=== PATIENT | male | born 1955 | race Caucasian/White ===

== ENCOUNTER 2019-09-30 07:49 | Emergency (ER) | payer BC, SELFPAY ==
--- NOTE | ~2019-09-30 | XR_ITS ---
EXAMINATION: XR lumbar spine 2-3V DATE: 09/30/2019 08:51 INDICATION: Low back pain. Fall. TECHNIQUE: 3 views of lumbar spine were obtained. COMPARISON: Lumbar spine radiographs 05/13/2017 FINDINGS: There is 6 degrees levocurvature of lumbar spine. There are changes of anterior and posteri or fusion procedures at L4-L5 with interbody devices and pedicle screws. Vertebral body heights are n ormal. There is mildly decreased disc height at L3-L4. There are endplate osteophytes at most levels. There is multilevel mild to moderate facet joint osteoarthritis. IMPRESSION: 1. Mild lumbar spondylosis. 2. Anterior and posterior fusion procedures at L4-L5. Reviewed, dictated and finalized at location A. RATION CHECKER
[2019-09-30 08:05] VITALS: BP 127/72; PULSE 80; RESP 20; O2SAT 94
[2019-09-30] MEDS: KETOROLAC (*BKC) 60 MG/2 ML VIAL 30 MG IM (08:33)
--- NOTE | 2019-09-30 08:37 | PC.NURSE ---
pt to xray per wheelchair.
--- NOTE | 2019-09-30 08:38 | ED.GENADULT ---
HPI - General Adult General Chief complaint: Back Pain/Injury Stated complaint: injured back Source: patient Mode of arrival: ambulatory Limitations: no limitations History of Present Illness HPI narrative: Sheila a 63-year-old man with a past medical history of chronic low back pain with to previous surgeries, diabetes and hypertension that presents to the emergency department back pain. He slipped on the ice and fell down 3 stairs 1 hour ago. He had immediate pain in his low back that did radiate and feet. It has been constant since the fall. It is better with rest worse with twisting. He denies any loss of bowel or bladder control well as numbness, tingling and weakness. He had no other injuries and did not hit his head. MD complaint: Back Pain After Fall Onset (ago): hour(s) (1) Location: back Radiation: extremity Severity: moderate Relieving factors: rest Exacerbating factors: movement Related Data Home Medications Medication Instructions Recorded Confirmed ergocalciferol (vitamin D2) 1,250 mcg PO DAILY 09/30/19 09/30/19 [Vitamin D2] irbesartan 75 mg PO DAILY 09/30/19 09/30/19 lisinopril 2.5 mg PO DAILY 09/30/19 09/30/19 metformin 500 mg PO DAILY 09/30/19 09/30/19 pravastatin 40 mg PO DAILY 09/30/19 09/30/19 Allergies Allergy/AdvReac Type Severity Reaction Status Date / Time No Known Allergies Allergy Verified 09/30/19 08:17 Review of Systems Constitutional: Constitutional: Denies chills and Denies fever(s) Eyes: Eyes: Denies change in vision, Denies eye discharge and Denies loss of vision ENT: Denies Normal hearing present, Denies vertigo and Denies dizziness Cardiovascular: Cardiovascular: Denies chest pain with activity, Denies syncope, Denies edema and Denies dyspnea on exertion Respiratory: Respiratory: Denies cough and Denies dyspnea on exertion Gastrointestinal: Gastrointestinal: Denies abdominal pain, Denies diarrhea, Denies nausea and Denies vomiting Genitourinary: Genitourinary: Denies dysuria Musculoskeletal: Musculoskeletal: Denies deformity Neurologic: Denies Normal hearing present, Denies behavioral changes, Denies confusion, Denies vertigo, Denies dizziness, Denies syncope and Denies loss of vision Psychiatric: Psychiatric: Denies anxiety, Denies behavioral changes, Denies confusion and Denies depression Endocrine: Endocrine: Reports no additional endocrine complaints Hematologic/Lymphatic: Hematologic/Lymphatic: Reports no additional hematologic/lymphatic complaints Allergic/Immunologic: Allergic/Immunologic: Reports no additional allergic/immunologic complaints [facility] Past Medical History Medical History (Updated 09/30/19 @ 08:43 by Vinod Bacon DO) Chronic back pain Diabetes Hypertension Surgical History Surgical History (Updated 09/30/19 @ 08:44 by Vinod Bacon DO) Previous back surgery Family History Family History (Updated 09/30/19 @ 08:44 by Vinod Bacon DO) Father Acute myocardial infarction Social History Social History (Updated 09/30/19 @ 08:45 by Vinod Bacon DO) Smoking status: Never smoker Exam Const: General: cooperative, healthy appearing, comfortable, no acute distress, well developed, alert, awake and Physically active; No confusion Orientation/consciousness: oriented to person, oriented to place, oriented to time and No confusion HENMT: Head: normal to inspection, normocephalic and atraumatic Ears: hearing grossly normal bilaterally and external ears normal General nose exam: Normal external nose present Eyes: General: appearance normal, both eyes and all related structures Periorbital: periorbital findings normal Sclera: sclerae normal Pupils: Equal, round and reactive pupils present Resp: Effort & Inspection: normal respiratory effort, able to speak in complete sentences and no respiratory distress Cardio: Jugular venous distension: no JVD Rate: regular rate GI: Inspection: normal
--- NOTE | 2019-09-30 08:47 | PC.NURSE ---
pt return to room, at bedside.
== END 2019-09-30 09:20 | disposition home or self-care (01) ==
PROVIDERS: Emergency Provider Family Medicine; PCP Internal Medicine
DX: M62.830 Muscle spasm of back (principal)
CPT/HCPCS: 72100; 96372; 99282; 99283; J1885

== ENCOUNTER 2020-06-18 00:39 | Outpatient (CLI) | payer BC, SELFPAY ==
[2020-06-18 18:05] LABS: SARS-CoV-2 RNA PCR Negative
== END 2020-06-18 00:40 | disposition home or self-care (01) ==
LOC: ANHCOVIDDT 00:39
PROVIDERS: PCP Internal Medicine; Visit Provider Internal Medicine Gastroenterology
DX: Z01.812 Encounter for preprocedural laboratory examination (principal); Z20.828 Contact with and (suspected) exposure to other viral communicable diseases
CPT/HCPCS: 87635; C9803; U0003

== ENCOUNTER 2020-06-21 00:14 | Day surgery (SDC) | payer BC, SELFPAY ==
[2020-06-16 10:50] VITALS: BMI 35.2
[2020-06-21 11:30] VITALS: BP 145/77; PULSE 72; RESP 16; TEMP 36.6; O2SAT 94
[2020-06-21] MEDS: LACTATED RINGERS 1,000 ML 150 ML IV CONT (11:38)
--- NOTE | 2020-06-21 11:42 | PM.HPGS ---
History of Present Illness History of Present Illness Consent: Risks, benefits, and alternatives have been discussed and questions answered. Patient agrees to proceed with procedure. Chief complaint: neoplasm screening Narrative: Conrad Anna Jr. is a 64 year old male with colon polyp about 10 years ago. Review of Systems Constitutional: Constitutional: Denies headache(s) and Denies weakness Eyes: Eyes: Denies blurry vision ENT: Reports Normal hearing present, Denies headache(s) and Denies neck pain Cardiovascular: Cardiovascular: Denies chest pain and Denies dyspnea Respiratory: Respiratory: Denies dyspnea Gastrointestinal: Gastrointestinal: Reports no additional gastrointestinal complaints Genitourinary: Genitourinary: Denies dysuria Musculoskeletal: Musculoskeletal: Denies neck pain Integumentary/Breasts: Skin/Breast: Denies dry skin Neurologic: Reports Normal hearing present, Denies headache(s) and Denies weakness Psychiatric: Psychiatric: Denies anxiety Endocrine: Endocrine: Denies change in body appearance Hematologic/Lymphatic: Hematologic/Lymphatic: Denies easy bleeding Allergic/Immunologic: Allergic/Immunologic: Denies urticaria PMFSH Past Medical History Medical History (Updated 06/21/20 @ 11:42 by Raj Atwood MD) Adenomatous colon polyp Chronic back pain Colon cancer screening Diabetes Hypertension JHONATAN (obstructive sleep apnea) Surgical History Surgical History Previous back surgery Family History Family History Father Acute myocardial infarction Social History Social History Smoking packs per day: 2 Smoking cigarettes per day: 40.0 Years smoked: 20 Smoking pack-years: 40.00 Smoking status: Former smoker Tobacco type: cigarettes Alcohol intake: current Substance use: never Substance use type: does not use Spiritual care concerns: No Meds Home Medications and Allergies Home Medications Medication Instructions Recorded Confirmed Type ergocalciferol (vitamin D2) 1,250 mcg PO MONTHLY 09/30/19 06/16/20 History [Vitamin D2] metformin 500 mg PO BID 09/30/19 06/16/20 History pravastatin 40 mg PO DAILY 09/30/19 06/16/20 History aspirin [Adult Low Dose Aspirin] 81 mg PO DAILY 06/16/20 06/16/20 History duloxetine 20 mg PO BID 06/16/20 06/16/20 History irbesartan 75 mg PO DAILY 06/16/20 06/16/20 History meloxicam 15 mg PO DAILY PRN 06/16/20 06/16/20 History Allergies Allergy/AdvReac Type Severity Reaction Status Date / Time No Known Allergies Allergy Verified 06/21/20 11:29 Vital Signs Vital Signs - 24 hr 06/21/20 11:30 Temperature 97.9 F Pulse Rate 72 Respiratory Rate 16 Blood Pressure 145/77 H Pulse Oximetry 94 Exam Const: General: comfortable and no acute distress HENMT: General nose exam: Normal nares present Eyes: General: appearance normal, both eyes and all related structures Neck: Neck: no JVD Resp: Auscultation: clear to auscultation bilaterally Cardio: Rate: regular rate Rhythm: regular rhythm GI: Inspection: non-distended GI Palp: Yes Soft to palpation Skin: General skin exam: normal color Neuro: General: gait normal Speech: normal speech Extrem: General: normal to inspection Psych: Mental Status: mental status grossly normal Assessment and Plan Assessment and plan (1) Adenomatous colon polyp: Code(s): D12.6 - Benign neoplasm of colon, unspecified Status: Acute Assessment and Plan: will proceed with colonoscopy (2) Colon cancer screening: Code(s): Z12.11 - Encounter for screening for malignant neoplasm of colon Status: Acute
--- NOTE | 2020-06-21 11:43 | WPDANESEPPF ---
Anes - Initial Pre Proc Eval Procedure: Operation Date: 06/21/20 12:45 Proposed Procedures p Screening Colonoscopy - Pedro Pablo Paula MD Date/Time: 06/21/20 11:43 Surgeon: Pedro Pablo Paula MD Pre Op Diagnosis: neoplasm screening Patient Data Age: 64 Gender: M Height: 5 ft 8 in Weight: 104.4 kg Last Vital Signs Temp 97.9 F 06/21/20 11:30 Pulse 72 06/21/20 11:30 Resp 16 06/21/20 11:30 BP 145/77 H 06/21/20 11:30 Pulse Ox 94 06/21/20 11:30 Allergies Allergy/AdvReac Type Severity Reaction Status Date / Time No Known Allergies Allergy Verified 06/21/20 11:29 Home Medications Medication Instructions Recorded Confirmed Type ergocalciferol (vitamin D2) 1,250 mcg PO MONTHLY 09/30/19 06/16/20 History [Vitamin D2] metformin 500 mg PO BID 09/30/19 06/16/20 History pravastatin 40 mg PO DAILY 09/30/19 06/16/20 History aspirin [Adult Low Dose Aspirin] 81 mg PO DAILY 06/16/20 06/16/20 History duloxetine 20 mg PO BID 06/16/20 06/16/20 History irbesartan 75 mg PO DAILY 06/16/20 06/16/20 History meloxicam 15 mg PO DAILY PRN 06/16/20 06/16/20 History Patient hx anesthesia problems: none Family hx anesthesia problems: none PMFSH Past Medical History Medical History (Updated 06/21/20 @ 11:42 by Raj Atwood MD) Adenomatous colon polyp Chronic back pain Colon cancer screening Diabetes Hypertension JHONATAN (obstructive sleep apnea) Surgical History Surgical History Previous back surgery Family History Family History Father Acute myocardial infarction Social History Social History Smoking packs per day: 2 Smoking cigarettes per day: 40.0 Years smoked: 20 Smoking pack-years: 40.00 Smoking status: Former smoker Tobacco type: cigarettes Alcohol intake: current Substance use: never Substance use type: does not use Spiritual care concerns: No Anes - Eval Final PreProcedure Day of Procedure 06/21/20 11:43 Patient weight: obese Heart: regular rate and rhythm Lungs: clear to auscultation Airway: Mallampati scale class III Neurological: alert and oriented Last oral intake: >/= 8 hours ASA classification: IV Emergent: no Anesthetic plan: proceed Anesthesia type and monitoring: general GIVS and standard monitoring Informed Consent: The patient's anesthetic plan and its attendant risks and benefits were discussed with the patient/family/POA. Questions were solicited and answers provided to the satisfaction of the patient/family/POA.
[2020-06-21 11:46] LABS: Glucose Point of Care 121 (65-105)
[2020-06-21 12:05] VITALS: BP 120/70; PULSE 70; RESP 18; O2SAT 94
[2020-06-21 12:15] VITALS: BP 113/72; PULSE 73; RESP 21; O2SAT 97
[2020-06-21 12:25] VITALS: BP 140/76; PULSE 67; RESP 20; O2SAT 97
== END 2020-06-21 12:36 | disposition home or self-care (01) ==
PROVIDERS: PCP Internal Medicine; Visit Provider Internal Medicine Gastroenterology
PROC: 0DJD8ZZ Inspection of Lower Intestinal Tract, Via Natural or Artificial Opening Endoscopic (ICD-10-PCS; CPT 45378; principal; 2020-06-21 12:45)
DX: Z12.11 Encounter for screening for malignant neoplasm of colon (principal); K62.1 Rectal polyp; D17.5 Benign lipomatous neoplasm of intra-abdominal organs; I10 Essential (primary) hypertension; E11.9 Type 2 diabetes mellitus without complications; G47.33 Obstructive sleep apnea (adult) (pediatric); Z87.891 Personal history of nicotine dependence
CPT/HCPCS: 45380; 88305; J2704; J7120

== ENCOUNTER 2021-11-09 07:19 | Emergency (ER) | payer BC, SELFPAY ==
--- NOTE | ~2021-11-09 | CT_ITS ---
EXAMINATION: CT abdomen pelvis w con DATE: 11/09/2021 09:02 INDICATION: Right lower abdominal pain, nausea and vomiting TECHNIQUE: Computed tomography (CT) of the abdomen and pelvis was performed with 100 mL Omnipaque-350 intravenous contrast. Automated exposure control and iterative reconstruction technique were employe d. The dose-length product was 1146.06 mGy-cm. COMPARISON: Head CT dated 01/02/2017 FINDINGS: Chronic elevation left hemidiaphragm with mild left basilar atelectasis. Heart size is normal. No per icardial or pleural effusion. Moderate-sized sliding-type hiatal hernia. Small calcified gallstone in the dependent aspect of the otherwise normal-appearing gallbladder. Couple small low-attenuation hep atic cysts the largest measuring 9 mm . Spleen, pancreas and left adrenal gland are normal. 7 mm macr oscopic fat attenuation right adrenal nodule consistent with a myelolipoma. 2 mm nonobstructing left renal stone and 1.6 m exophytic left renal cyst. There are at least 5 stones in the right kidney, the largest measuring 3 mm. 3 mm obstructing stone in the distalmost right ureter within 1 cm of the ure terovesicular junction with mild right hydroureteronephrosis, mildly delayed right nephrogram and mil d right perinephric and periureteral stranding. 2-3 mm stone at the left ureterovesicular junction bu t without left hydroureteronephrosis. Bowels including the appendix are normal. Partially decompresse d bladder is unremarkable. No free intraperitoneal gas or fluid. No pathologically enlarged abdominal or pelvic lymphadenopathy. Partial L4 laminectomy with instrumented instrumented anterior and tiedown operator ior L4-5 spinal fusion. Likely bone graft harvest site at the left posterior iliac spine. IMPRESSION: 1. Bilateral nephrolithiasis with obstructing 3 mm stone at the distalmost right ureter with mild rig ht hydroureteronephrosis and mildly delayed right nephrogram and with 2-3 mm stone at the left ureter ovesicular junction but without left-sided hydroureteronephrosis. 2. Small sliding-type hiatal hernia. 3. Cholelithiasis. Reviewed, dictated and finalized at location A. IMPRESSION: 1. Bilateral nephrolithiasis with obstructing 3 mm stone at the distalmost righ t ureter with mild right hydroureteronephrosis and mildly delayed right nephrog hedy and with 2-3 mm stone at the left ureterovesicular junction but without lef t-sided hydroureteronephrosis. 2. Small sliding-type hiatal hernia. 3. Cholelithiasis.
[2021-11-09 07:25] VITALS: BP 190/91; PULSE 62; RESP 18; TEMP 36.4; O2SAT 97
--- NOTE | 2021-11-09 07:45 | ECG_ITS ---
Measurements Intervals [place] Rate: 62 P: 30 NM: 137 QRS: 68 QRSD: 94 T: 264 QT: 395 QTc: 401 Interpretive Statements SINUS RHYTHM WITH OCCASIONAL VENTRICULAR PREMATURE COMPLEXES LEFT VENTRICULAR HYPERTROPHY AND ST-T CHANGE [VOLTAGE CRITERIA PLUS ST/T ABNORMALITY] NO PREVIOUS ECG AVAILABLE FOR COMPARISON Electronically Signed On 11-09-2021 14:03:06 CDT by Michelle Coleman M.D.
--- NOTE | 2021-11-09 07:47 | ED.ABDPAIN ---
HPI - Abdominal Pain General Chief Complaint: Back Pain/Injury Stated Complaint: BACK PAIN Time Seen by Provider: 11/09/21 07:48 Source: patient and family Mode of arrival: ambulatory Limitations: no limitations History of Present Illness HPI narrative: this is a 66-year-old gentleman with a history of hypertension history of diabetes and hyperlipidemia has a chronic history of low back surgery and is complaining of low back pain as well as abdominal pain localizing to his right lower quadrant with some with nausea and an episode of vomiting with chills currently no fevers started yesterday and rates his pain about a 7/10 there is no chest pain no shortness of breath no dysuria no hematuria. MD elicited complaint: abdominal pain and other ( and lower back pain) Onset (ago): day(s) Pain Consistency: intermittent Location: periumbilical and RLQ Severity: moderate Pain scale (0-10): 7 Quality: aching Radiation: none Related Data Home Medications Medication Instructions Recorded Confirmed ergocalciferol (vitamin D2) 1,250 mcg PO MONTHLY 09/30/19 11/09/21 [Vitamin D2] metformin 500 mg PO BID 09/30/19 11/09/21 pravastatin 40 mg PO DAILY 09/30/19 11/09/21 aspirin [Adult Low Dose Aspirin] 81 mg PO DAILY 06/16/20 11/09/21 duloxetine 20 mg PO BID 06/16/20 11/09/21 irbesartan 75 mg PO DAILY 06/16/20 11/09/21 meloxicam 15 mg PO DAILY PRN 06/16/20 11/09/21 Allergies Allergy/AdvReac Type Severity Reaction Status Date / Time No Known Allergies Allergy Verified 11/09/21 07:34 Review of Systems Review of Systems: All systems reviewed & are unremarkable except as noted in HPI and below PMFSH Past Medical History Medical History Adenomatous colon polyp Chronic back pain Colon cancer screening Diabetes Hypertension JHONATAN (obstructive sleep apnea) Surgical History Surgical History Previous back surgery Family History Family History Father Acute myocardial infarction Social History Social History Smoking packs per day: 2 Smoking cigarettes per day: 40.0 Years smoked: 20 Smoking pack-years: 40.00 Smoking status: Former smoker Tobacco type: cigarettes Alcohol intake: current Substance use: never Substance use type: does not use Spiritual care concerns: No Exam Const: General: no acute distress and alert Orientation/consciousness: patient oriented x3 HENMT: Head: normal to inspection Eyes: Conjunctivae: conjunctivae normal Pupils: Equal, round and reactive pupils present EOM: EOMs intact bilaterally Direct Ophthalmoscopy: no photophobia Neck: Neck: normal visual inspection, no lymphadenopathy and no meningeal signs Chest: Chest palpation & inspection: normal inspection of the chest Resp: Effort & Inspection: normal respiratory effort Cardio: Rate: regular rate Rhythm: regular rhythm GI: GI Palp: Yes Soft to palpation and Yes Tenderness to palpation present (GI) ( Right lower quadrant) Percussion: Yes normal to percussion : Testes: Testes normal Urinary Catheter: Urinary Catheter: patent and draining Back/Spine/Pelvis: Back: CVA tenderness Skin: General skin exam: normal color Rashes: no rashes Neuro: General: patient oriented x3, moves all extremities and no meningeal signs Extrem: General: normal to inspection and no pedal edema Psych: Mental Status: mental status grossly normal Affect: normal affect and Anxious affect present Attitude: cooperative Course Course Emergency Course: patient having abdominal pain CT scan with contrast reviewed with patient and family as well as EKG and blood work, patient started an IV with some IV fluids pain medication which includes Toradol 30mg IV as well as Zofran 4mg IV. Vital Signs Vital signs: Faith
[2021-11-09 08:07] LABS: Basophils Absolute Auto 0.03 K/mm3 (0.00-0.10); Basophils Percent Auto 0.2 % (0.0-1.0); Eosinophils Absolute Auto 0.06 K/mm3 (0.02-0.50); Eosinophils Percent Auto 0.5 % (1.0-6.0); Hematocrit 46.9 % (40.0-54.0); Hemoglobin 14.8 g/dL (14.0-18.0); Immature Granulocyte Absolute 0.07 K/mm3 (0.00-0.00); Immature Granulocyte Percent A 0.5 % (0.0-0.0); Lymphocytes Absolute Auto 1.27 K/mm3 (1.10-4.50); Lymphocytes Percent Auto 9.6 % (18.0-42.0); Mean Corpuscular HGB Conc 31.6 g/dL (32.0-36.0); Mean Corpuscular Hemoglobin 26.8 pg (27.0-31.0); Mean Platelet Volume 9.2 fl (8.7-11.0); Monocytes Absolute Auto 0.64 K/mm3 (0.10-0.90); Monocytes Percent Auto 4.8 % (2.0-11.0); Neutrophils Absolute Auto 11.2 K/mm3 (1.7-7.2); Neutrophils Percent Auto 84.4 % (50.0-70.0); Platelet Count Result 230 K/mm3 (150-420); Red Blood Count 5.52 M/mm3 (4.70-6.10); Red Cell Distribution Width 13.5 % (11.6-14.4); White Blood Count 13.3 K/mm3 (4.8-10.8)
[2021-11-09 08:12] LABS: Add Urine Microscopic? YES; Appearance Urine Clear (Clear); Bilirubin Urine Negative (Negative); Blood Urine 3+ (Negative); Color Urine Light Yellow (Yellow); Glucose Urine UA Negative (Negative); Ketones Urine Negative (Negative); Leukocyte Esterase Ur Negative (Negative); Nitrate Urine Negative (Negative); Protein Urine 2+ (Negative); Specific Grav Ur 1.025 (1.010-1.020); Urobilinogen Urine 0.2 mg/dL (0.2-1.0)
[2021-11-09] MEDS: SODIUM CHLORIDE 0.9% IV 1,000 ML 999 ML IV CONT (08:12)
[2021-11-09] MEDS: KETOROLAC 30 MG/ML VIAL (*BKC) IV PUSH (08:13)
[2021-11-09] MEDS: ONDANSETRON INJ 4 MG/2 ML VIAL IV PUSH (08:17)
[2021-11-09 08:21] LABS: Partial Thromboplastin Time 29.3 SEC (23.90-30.70); Prothrombin Time 10.9 Seconds (9.50-12.10)
[2021-11-09 08:22] LABS: Bacteria Urine Trace /hpf; Mucus Urine Few /lpf; RBC Urine 21-50 /hpf (0-2); WBC Urine 0-3 /hpf (0-3)
[2021-11-09 08:26] LABS: Lactic Acid Reflex 1.5 mmol/L (0.4-2.0)
[2021-11-09 08:32] LABS: Alanine Aminotransferase 27 U/L (16-63); Albumin Level 3.7 g/dL (3.4-5.0); Alkaline Phosphatase 83 U/L (46-116); Anion Gap 10 mmol/L (8-16); Aspartate Amino Transferase 17 U/L (15-37); Blood Urea Nitrogen 24 mg/dL (7-18); Calcium 9.4 mg/dL (8.5-10.1); Carbon Dioxide 29 mmol/L (21-32); Chloride 102 mmol/L (98-108); Estimated CRCL calculation 55 ml/min; Estimated Glomerular Filt Rate 53; Glucose 173 mg/dL (70-99); Lipase 81 U/L (73-393); Osmolality Calculated 300 mOsm/kg (285-295); Sodium 141 mmol/L (136-145); Total Protein 7.8 g/dL (6.4-8.2); Troponin I 10.5 ng/L (0.00-60.4)
[2021-11-09 09:06] VITALS: BP 178/88; PULSE 60; TEMP 36.6; O2SAT 97
== END 2021-11-09 09:40 | disposition home or self-care (01) ==
PROVIDERS: Emergency Provider Emergency Medicine; PCP Internal Medicine
DX: N20.1 Calculus of ureter (principal); E11.9 Type 2 diabetes mellitus without complications; I10 Essential (primary) hypertension; Z87.891 Personal history of nicotine dependence
CPT/HCPCS: 36415; 74177; 80053; 81001; 83605; 83690; 84484; 85025; 85610; 85730; 93005; 96361; 96374; 96375; 99284; J1885; J2405; J7030; Q9967

== ENCOUNTER 2022-12-14 14:13 | Outpatient (CLI) | payer MEDICARE, SELFPAY ==
--- NOTE | ~2022-12-14 | XR_ITS ---
Left Knee Technique: AP, lateral, and sunrise views were obtained. Clinical History: Pain Findings: No fracture or dislocation is seen. Osseous alignment is anatomic. Minimal tricompartmental spurring noted. Soft tissues are unremarkable. No joint effusion is seen. Impression: Minimal tricompartmental degenerative spurring. Reviewed, dictated and finalized at [facility]. Impression: Minimal tricompartmental degenerative spurring.
--- NOTE | ~2022-12-14 | XR_ITS ---
AP and lateral views of the left hip Clinical history: Pain Findings: No acute fracture or dislocation is seen. Osseous alignment is anatomic. The left hip joint and visualized left SI joint are preserved. Soft tissues are unremarkable. Impression: No significant abnormality is seen. Reviewed, dictated and finalized at [facility]. Impression: No significant abnormality is seen.
--- NOTE | ~2022-12-14 | XR_ITS ---
XR lumbar spine 2-3V DATE: 12/14/2022 14:46 INDICATION: Chronic low back pain. TECHNIQUE: AP, lateral and coned lateral lumbosacral views COMPARISON: 09/30/2019 lumbar spine FINDINGS: Status post posterior and interbody spinal fusion at L4-5. There is mild degenerative disc disease at L1-2 and L4-5. No fracture or bone destruction is detected. The sacroiliac joints are intact. No significant change since 09/30/2019. Right renal calcified calculi. IMPRESSION: No significant change since 09/30/2019 Reviewed, dictated and finalized at location B.
== END 2022-12-14 14:14 | disposition home or self-care (01) ==
LOC: CHSIMG 14:19
PROVIDERS: PCP Internal Medicine; Visit Provider Internal Medicine
DX: M25.562 Pain in left knee (principal); M54.50 Low back pain, unspecified; M17.12 Unilateral primary osteoarthritis, left knee
CPT/HCPCS: 72100; 73502; 73562

== ENCOUNTER 2023-07-29 14:36 | Outpatient (CLI) | payer MEDICARE, SELFPAY ==
--- NOTE | ~2023-07-29 | CT_ITS ---
EXAMINATION: CT abdomen pelvis wo/w con DATE: 07/29/2023 15:36 INDICATION: Microscopic hematuria. TECHNIQUE: Computed tomography (CT) of the abdomen and pelvis was performed without and with intraven ous contrast using a total of 130 mL Omnipaque-350 intravenous contrast with a double-bolus technique for simultaneous opacification of the renal parenchyma and renal collecting system. Automated exposu re control and iterative reconstruction technique were employed. The dose-length product was 2238.93 mGy-cm. COMPARISON: CT abdomen and pelvis 11/09/2021 FINDINGS: The visualized portions of the lung bases demonstrate mild atelectasis. No pleural effusion. The hear t size is normal. There are coronary artery calcifications. No pericardial effusion. There is a small sliding hiatal hernia. There are cysts in the liver measuring up to 11 mm. There is a gallstone in t he gallbladder, which is normal in size. The spleen, pancreas, and adrenal glands are normal. There i s a 16 mm cyst in right kidney. There is an 18 mm hemorrhagic cyst in left kidney. There are approxim ately 9 stones in right kidney with the largest node measuring 12 mm in the renal pelvis. There is ur othelial thickening in the renal pelvis. Right ureter is well opacified. There are 2 stones in left k idney measuring up to 3 mm. Left ureter is not well opacified distally, but is normal. There is a lef t inguinal hernia containing fat. There are no dilated loops of bowel. The appendix is normal. There is an umbilical hernia containing fat. There are no pathologically enlarged lymph nodes. There is no free intraperitoneal fluid. There are changes of anterior and posterior fusion procedures at L4-L5. T here is mild thoracic and lumbar spondylosis. IMPRESSION: 1. Bilateral nonobstructing kidney stones. Urothelial thickening in right renal pelvis, consistent wi th inflammation. Reviewed, dictated and finalized at location E. LY PRACTICE MEDICAL DOCTOR IMPRESSION: 1. Bilateral nonobstructing kidney stones. Urothelial thickening in right renal pelvis, consistent with inflammation.
[2023-07-29 15:21] LABS: Estimated Glomerular Filt Rate > 60
== END 2023-07-29 14:37 | disposition home or self-care (01) ==
PROVIDERS: PCP Internal Medicine; Visit Provider Physician Assistant
DX: R31.29 Other microscopic hematuria (principal); N20.0 Calculus of kidney
CPT/HCPCS: 74178; Q9967

== ENCOUNTER 2023-10-28 08:35 | Outpatient (CLI) | payer MEDICARE, SELFPAY ==
--- NOTE | 2023-10-28 08:50 | ECG_ITS ---
Measurements Intervals [place] Rate: 47 P: -3 ND: 141 QRS: 50 QRSD: 98 T: 151 QT: 425 QTc: 379 Interpretive Statements SINUS BRADYCARDIA LEFT VENTRICULAR HYPERTROPHY ST-T WAVE ABNORMALITY IN LAT/HIGH LAT LEADS- CONSIDER ISCHEMIA BASELINE ARTIFACT- I, II, III, AVR, AVL, AVF ABNORMAL ECG COMPARED TO ECG 11/09/2021 08:11:46 SIN[address]AD[address]CARDIA NOW PRESENT ST-T WAVE ABNORMALITY NOW PRESENT Electronically Signed On 10-28-2023 9:20:13 VISITOR INFORMATION ASSISTANT by Tod Tang D.O.
[2023-10-28 09:17] LABS: Anion Gap 8 mmol/L (8-16); Blood Urea Nitrogen 16 mg/dL (9-20); Calcium 9.4 mg/dL (8.4-10.2); Carbon Dioxide 26 mmol/L (22-30); Chloride 105 mmol/L (98-107); Estimated Glomerular Filt Rate > 60; Glucose 103 mg/dL (65-110); Potassium 3.9 mmol/L (3.4-5.0); Sodium 139 mmol/L (137-145)
[2023-10-28 09:22] LABS: Prothrombin Time 13.8 Seconds (11.1-14.7)
[2023-10-28 09:23] LABS: Partial Thromboplastin Time 30.7 SECONDS (22.3-36.8)
== END 2023-10-28 08:36 | disposition home or self-care (01) ==
LOC: ANHSURGERY 08:40
PROVIDERS: Anesthesiology; PCP Internal Medicine; Visit Provider Urology
DX: N20.0 Calculus of kidney (principal); E11.9 Type 2 diabetes mellitus without complications; Z01.818 Encounter for other preprocedural examination; R94.31 Abnormal electrocardiogram [ECG] [EKG]
CPT/HCPCS: 36415; 80048; 85610; 85730; 87086; 93005

== ENCOUNTER 2023-11-01 00:32 | Day surgery (SDC) | payer MEDICARE, SELFPAY ==
[2023-10-22 13:58] VITALS: BMI 29.8
--- NOTE | 2023-10-22 14:07 | PC.NURSE ---
PRE-OP INSTRUCTIONS, PLEASE READ CAREFULLY Report to the Outpatient Waiting Room, entrance under the green pavilion located off [facility], at time _1100_ on date _11/01/23_. Planned Procedure Time: _1 PM_. Time changes happen often and if your time is changed the preop area will call you the afternoon before. - You and your visitor will be asked to self-screen and do not enter if you have any COVID symptoms. - A mask is optional within the hospital at this time. Patients may have clear liquids (water, carbonated beverages, clear teas, apple juice) until 3 hours prior to surgery (1000 AM) with a maximum of 20 ounces. - No food from midnight until time of surgery Take the following medications with a SIP of water the morning of surgery: _DULOXETINE_ DO NOT STOP ANY OF YOUR OTHER PRESCRIPTION MEDICATIONS PRIOR TO SURGERY ?EXCEPT THE FOLLOWING Medications to discontinue per physician ___NONE____, Date to take last dose Please no make-up, nail nauruan, hairspray, perfume, deodorant, or body powder the day of surgery. No jewelry (including any body piercings) or valuables the day of surgery, leave them at home. Please take a shower or bath the night before, or the morning of, surgery with an antibacterial soap. Wear comfortable, loose fitting clothing. - Jewelry must be removed prior to entering the operating room. Rings and piercings that are not removed may be cut off. - The hospital will not accept responsibility for valuables. - Please leave all valuables, including medications, at home the day of surgery. If you are going home after surgery, a licensed stunt driver must drive you home. - NO public transportation without another adult if you receive anesthesia. - We recommend that an adult stay with you for 24 hours following discharge. - We also recommend that you do not drive, make important decision, drink alcoholic beverages, or take any drugs that were not prescribed by your health care provider for at least 24 hours after your discharge time. Follow any additional instructions given to you from your surgeon. If you or anyone in your household have experienced Covid symptoms in the past week, please notify your surgeon or the nurse liaison at the phone number below for possible testing. Telephone instructions given to _PATIENT_and asked if any additional questions and then verbalized understanding. Patient advised to call surgeon office or pre surgery nurse liaison [phone] if any additional questions.
--- NOTE | 2023-10-31 13:48 | P.PNAN_ITS ---
Anes - Initial Pre Proc Eval Procedure: Operation Date: 11/01/23 13:00 Proposed Procedures p Right Extracorporeal Shock Wave Lithotripsy - Michael Watts MD s Flexible Cystoscopy - Michael Watts MD Date/Time: 10/31/23 13:48 Surgeon: Michael Watts MD Pre Op Diagnosis: right renal kidney stones Patient Data Age: 68 Gender: M Height: 1.7 m Weight: 86.36 kg Allergies Allergy/AdvReac Type Severity Reaction Status Date / Time No Known Allergies Allergy Verified 11/01/23 11:20 Home Medications Medication Instructions Recorded Confirmed Type ergocalciferol (vitamin D2) 1,250 1,250 mcg PO MONTHLY 09/30/19 11/01/23 History mcg (50,000 unit) capsule (Vitamin D2) metformin 500 mg tablet,extended 500 mg PO BID 09/30/19 11/01/23 History release 24 hr duloxetine 20 mg capsule,delayed 20 mg PO BID 06/16/20 11/01/23 History release Patient hx anesthesia problems: none Family hx anesthesia problems: none Results Review: All pre-operative results and documents have been reviewed as part of the pre- operative evaluation. [facility] Past Medical History Medical History (Updated 10/31/23 @ 13:49 by Joselito Maurer DO) Adenomatous colon polyp Chronic back pain Colon cancer screening Diabetes GERD (gastroesophageal reflux disease) Hypertension JHONATAN (obstructive sleep apnea) Surgical History Surgical History (Updated 10/31/23 @ 13:49 by Joselito Maurer DO) History of cholecystectomy Previous back surgery Family History Family History Father Acute myocardial infarction Social History Social History Smoking packs per day: 2 Smoking cigarettes per day: 40.0 Years smoked: 15 Smoking pack-years: 30.00 Smoking status: Former smoker Tobacco type: cigarettes Second hand tobacco smoke exposure: No Smoking end date: 08/26/93 Alcohol intake: never Substance use: never Substance use type: does not use Living arrangements: with family Spiritual care concerns: No Anes - Eval Final PreProcedure Day of Procedure 10/31/23 13:48 Patient weight: overweight Heart: regular rate and rhythm Lungs: clear to auscultation Airway: Mallampati scale class II Neurological: alert and oriented Last oral intake: >/= 8 hours ASA classification: III Emergent: no Anesthetic plan: proceed Anesthesia type and monitoring: general LMA and standard monitoring Results Review: All pre-operative results and documents have been reviewed as part of the pre- operative evaluation. Informed Consent: The patient's anesthetic plan and its attendant risks and benefits were discussed with the patient/family/POA. Questions were solicited and answers provided to the satisfaction of the patient/family/POA.
[2023-11-01] VITALS (9 sets, daily range): BP systolic 134–168; BP diastolic 57–90; PULSE 49–58; RESP 15–21; TEMP 36.3–36.8; O2SAT 96–100
--- NOTE | ~2023-11-01 | XR_ITS ---
EXAMINATION: XR abdomen/kub 1V INDICATION: Urolithiasis TECHNIQUE: Supine views of the abdomen were obtained on 2 radiographs. COMPARISON: None FINDINGS: A 13 mm calcification projects in the right renal pelvis. At least six additional stones of the right kidney are identified which measure up to 4 mm. Left kidney stones measure up to 4 mm. The lung bases are clear. The bowel gas pattern is normal. There are phleboliths of the pelvis. There ar e surgical changes at L4-5. IMPRESSION: 1. 13 mm calcification in the right renal pelvis. 2. Bilateral nephrolithiasis. Reviewed, dictated and finalized at location B. TACKER
--- NOTE | 2023-11-01 06:25 | WPDHPUPDATE1 ---
History and Physical Update Update Date/Time: 11/01/23 06:25 History and Physical has been reviewed, including an updated exam of the patient. There are NO changes in the patient's condition. Risks, benefits, and alternatives have been discussed and questions answered. Patient agrees to proceed with procedure.
[2023-11-01] MEDS: LACTATED RINGERS 1,000 ML 30 ML IV CONT (11:30)
[2023-11-01 11:34] LABS: Glucose Point of Care 115 mg/dl (65-105)
[2023-11-01] MEDS: ceFAZolin 2 GM/D5W 50 ML 2 GM/50 ML BAG IVPB (11:46)
--- NOTE | 2023-11-01 12:16 | W.PM.PROC2 ---
Procedure Note - Detailed Date of Procedure 11/01/23 Pre-op Diagnosis Right renal stones, microscopic hematuria Post-op Diagnosis Same Procedure Performed Cystoscopy, right ESWL Surgeon Michael Watts MD Anesthesia General Description of Procedure The patient was brought to the operative suite where he was placed in the supine position on the Dornier lithotripter table. Flexible cystoscopy was undertaken with a 16F flexible cystoscopy. There were no urethral strictures. The prostatic urethra estimated length was 2.0cm. There was mild obstruction of the prostatic urethra with no median lobe enlargement. The bladder mucosa was normal and there was a single, orthotopic ureteral orifice bilaterally. The patient was then repositioned in the supine position with the focal point of the lithotriptor on a 12mm right renal pelvic calculus. A total of 2500 shocks were delivered at a power setting of 4. There appeared to be good fragmentation of the stone. The patient tolerated the procedure well and was taken to the recovery room in good condition. Drains No Pathology None sent Complications No immediate complications
[2023-11-01 12:53] LABS: Glucose Point of Care 116 mg/dl (65-105)
== END 2023-11-01 14:21 | disposition home or self-care (01) ==
PROVIDERS: PCP Internal Medicine; Visit Provider Urology
PROC: (CPT 50590; principal; 2023-11-01 13:00)
PROC: 0TJB8ZZ Inspection of Bladder, Via Natural or Artificial Opening Endoscopic (ICD-10-PCS; CPT 52000; 2023-11-01 13:00)
DX: N20.0 Calculus of kidney (principal); R31.29 Other microscopic hematuria; E11.9 Type 2 diabetes mellitus without complications; I10 Essential (primary) hypertension; G47.33 Obstructive sleep apnea (adult) (pediatric); K21.9 Gastro-esophageal reflux disease without esophagitis; Z79.84 Long term (current) use of oral hypoglycemic drugs; Z87.891 Personal history of nicotine dependence
CPT/HCPCS: 52000; 50590; 74018; 82948; J0690; J1100; J2405; J2704; J7030; J7120

== ENCOUNTER 2023-11-08 08:53 | Outpatient (CLI) | payer MEDICARE, SELFPAY ==
--- NOTE | ~2023-11-08 | XR_ITS ---
Supine and upright views of the abdomen Clinical history: History of kidney stones, recent lithotripsy COMPARISON: 11/01/2023 Findings: Bowel gas pattern is nonspecific. No evidence for obstruction or free air. Suspected small residual right renal stones are present. The largest stone seen in the right renal pelvis on prior ex am is no longer present.. Stable spinal fixation hardware at the lower lumbar spine. Impression: Probable small residual right renal stones. Largest stone in the renal pelvis region on prior exam is no longer present. Reviewed, dictated and finalized at location . Impression: Probable small residual right renal stones. Largest stone in the renal pelvis region on prior exam is no longer present.
== END 2023-11-08 08:54 | disposition home or self-care (01) ==
LOC: ANHIMG 08:57
PROVIDERS: PCP Internal Medicine; Visit Provider Urology
DX: Z87.442 Personal history of urinary calculi (principal); Z98.890 Other specified postprocedural states
CPT/HCPCS: 74018

== ENCOUNTER 2024-11-23 14:38 | Outpatient (CLI) | payer MEDICARE, SELFPAY ==
--- NOTE | ~2024-11-23 | XR_ITS ---
XR abdomen/kub 1V 11/23/2024 14:52 Indication: Kidney stones Procedure: KUB Comparison: 11/08/2023 Findings: Bowel gas pattern nonobstructive. Moderate colonic fecal loading. There are bilateral renal stones. There are surgical fusion changes at L4-5. There are pelvic phleboliths. No definite stones are identified in the expected course of the ureters. Impression: 1: Bilateral nephrolithiasis. Reviewed, dictated and finalized at location A. Impression: 1: Bilateral nephrolithiasis.
--- OUTSIDE RECORDS SUMMARY | 2024-11-23 16:09 | XMS_ITS | Patient Health Record ---
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
--- OUTSIDE RECORDS SUMMARY | 2024-11-23 16:09 | XMS_ITS | Clinical Summary ---
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 Owner [employer] Name Role Phone Unavailable Primary Care Provider Unavailabl e Social History Tobacco Use Types Packs/Day Years Used Date Smoking Tobacco: Never Assessed Sex and Gender Information Value Date Recorded Sex Assigned at Not on file Legal Sex Male 8:24 PM CDT Gender Identity Not on file Sexual Orientation Not on file Last Filed Vital Signs Vital Sign Reading Time Taken Comments Blood Pressure 130/80 01/16/2017 10:23 AM CDT Pulse 87 01/16/2017 10:23 AM CDT Temperature - - Respiratory Rate - - Oxygen Saturation - - Inhaled Oxygen Concentration - - Weight 96.6 kg (213 lb) 01/16/2017 10:23 AM CDT Height 170.2 cm (5' 7 ) 01/16/2017 10:23 AM CDT Body Mass Index 33.36 01/16/2017 10:23 AM CDT Plan of Treatment Health Maintenance Due Date Last Done Comments Colorectal Cancer Screening Colonoscopy (10 Years) 1957 Hepatitis C 1975 DTaP, Tdap and Td Vaccines ( 1 - Tdap) 1976 Zoster Vaccines (1 of 2) 2007 Pneumococcal Vaccine: 65+ Ye ars (1 of 1 - PCV) 2022 COVID-19 Vaccine ( - 2023-2 5 season) 2024 RSV Immunization or 60+ Years (1 - 1-dose 75+ series) 2032 Meningococcal B Vaccine Aged Out No l onger eligible based on patient's age to complete this topic Meningococcal Vaccine Aged Out No amber tam eligible based on patient's age to complete this topic RSV Immunizations Under 20 Months Aged Out No longer eligible based on patient's age to complete this topic
== END 2024-11-23 14:39 | disposition home or self-care (01) ==
LOC: ANHIMG 14:43
PROVIDERS: PCP Internal Medicine; Visit Provider Urology
DX: N20.0 Calculus of kidney (principal)
CPT/HCPCS: 74018